=== PATIENT | female | born 1950 | race Caucasian/White ===

== ENCOUNTER → 2024-05-03 09:05 | Outpatient (REF) | payer BC, SELFPAY ==
[2024-05-03 10:23] LABS: % Basophils 0.5 % (0-2); % Eosinophils 3.1 % (0-6); % Immature Granulocytes 0.2 % (0-0.5); % Lymphocytes 21.2 % (20.5-51.1); % Monocytes 6.6 % (1.7-9.3); % Neutrophils 68.4 % (42.2-75.2); Absolute Eosinophils 0.2 10^3/uL (0-0.7); Absolute Lymphocytes 1.3 10^3/uL (1.2-3.4); Absolute Monocytes 0.4 10^3/uL (0.1-0.6); Absolute Neutrophils 4.1 10^3/uL (1.4-6.5); Hematocrit 43.7 % (37.0-47.0); Hemoglobin 14.1 g/dL (12.0-16.0); Mean Corp Hgb Conc. 32.3 g/dL (33.0-37.0); Mean Corpuscular Hgb 26.9 pg (27.0-31.0); Mean Corpuscular Volume 83.4 fL (81.0-99.0); Mean Platelet Volume 11.6 fL (7.4-10.4); Nucleated Red Blood Cells % 0 %; Platelet Count 170 10^3/uL (130-400); Red Blood Cell Count 5.24 10^6/uL (4.20-5.40); Red Cell Dist. Width 14.4 % (11.5-14.5)
[2024-05-03 10:54] LABS: ALT (SGPT) 13 U/L (0-35); AST (SGOT) 23 U/L (14-36); Albumin 4.2 g/dl (3.5-5.0); Alkaline Phosphatase 114 U/L (38-126); Blood Urea Nitrogen 15 mg/dl (7-17); Calcium 9.3 mg/dl (8.4-10.2); Carbon Dioxide 27 mmol/L (22-30); Chloride 103 mmol/L (98-107); Glucose 100 mg/dl (70-99); HDL Cholesterol 53 mg/dl; LDL Cholesterol, Calculated 109 mg/dl; Potassium 4.6 mmol/L (3.5-5.1); Sodium 141 mmol/L (135-145); Total Bilirubin 0.6 mg/dl (0.2-1.3); Total Cholesterol 213 mg/dl (50-199); Total Protein 6.6 g/dl (6.3-8.2); Triglyceride 255 mg/dl (10-149); Very Low Density Lipoprotein 51 mg/dl (0-30); eGFR > 60.00
[2024-05-03 11:19] LABS: TSH Reflex To Free T4 2.94 uIU/ml (0.47-4.68)
== END ==
LOC: REG 09:05
PROVIDERS: ATTENDING PHYSICIAN Nurse Practitioner Adult Health
DX: I10 Essential (primary) hypertension (principal)
CPT/HCPCS: 36415; 80053; 80061; 84443; 85025

== ENCOUNTER → 2024-06-17 08:04 | Outpatient (REF) | payer BC, SELFPAY | LOC: HWWDC 08:04 | PROVIDERS: ATTENDING PHYSICIAN Nurse Practitioner Adult Health | DX: Z12.31 Encounter for screening mammogram for malignant neoplasm of breast (principal); Z13.820 Encounter for screening for osteoporosis | CPT/HCPCS: 77063; 77067; 77080 ==

== ENCOUNTER 2025-02-23 11:25 | Emergency (ER) | payer BC, SELFPAY ==
[2025-02-23 11:30] VITALS: BP 172/93
[2025-02-23 12:41] VITALS: BMI 28.6
[2025-02-23 12:46] VITALS: BP 129/84
--- NOTE | 2025-02-23 12:50 | EDRN ---
Pt states she is light sensitive, seeing waves and spots intermittently. PCP sent her to ED to be seen for further evaluation. Pt has had symptoms for a month.
--- NOTE | 2025-02-23 13:00 | EDRN ---
Nichelle MOROCHO in [facility] w/ pt.
--- NOTE | 2025-02-23 13:13 | ED.GENMED ---
History of Present Illness
General
Chief Complaint: Visual Problem
Source: patient
Time Seen by Provider: 02/23/25 12:53
History of Present Illness
History of Present Illness:
74-year-old female with past medical history of GERD and hypercholesterolemia presenting to the emergency department for evaluation of a visual disturbance that has been ongoing for about 1 month, saw primary care provider initially for this and was
started on a p.o. steroid taper with no improvement, had a routine optometry visit about 2 weeks ago, noted the symptoms to the dinkey dispatcher but no reported abnormalities were found. Patient states due to the persistent nature of the symptoms was
recommended by primary care to come to the ER for further evaluation. Patient does wear glasses but no contact lenses. She notes no pain associated with this. She describes the visual disturbance more so when looking at a bright object stating
that there does appear to be patches of waves or distortion of the image but notes it is in both eyes as opposed to just 1. Denies any headaches, focal weakness or numbness, diplopia fevers or infectious symptoms, recent illnesses, history of
similar. No other concerns presently.
Past History
Past History
ED Past Medical History: GERD and Hypercholesterolemia
ED Past Surgical History: Gynecological
Social History
Tobacco: Non-smoker
Alcohol: None
Drug: None
Personal:
Living: alone
Review of Systems
Review of Systems
All Other Systems: ROS reviewed and negative except as documented in HPI and ROS
Phy Exam
Physical Exam
Physical Exam:
GENERAL: Alert , in no apparent distress
EYE: conjunctiva clear, pupils 4 mm bilateral, PERRL, EOMI, no periorbital edema or erythema, no proptosis.
VISUAL ACUITY: 20/20 left right and both eyes
Tonometry measurement was 23 on the right eye, 19 on the left eye
Head: Normocephalic atraumatic
NECK: Supple,
ENT: mmm.
CARDIAC, regular rate and rhythm, no murmur
LUNGS: no acute respiratory distress
NEUROLOGICAL: Alert and oriented
SKIN: Warm and dry, skin intact.
MUSCULOSKELETAL: well perfused.
PSYCH: Normal and appropriate interaction.
Scores
Heart Failure Risk
Heart Failure Risk Score: Not Applicable
Heart Score for Chest Pain Patients
STEMI patient?: Not applicable
Withdrawal Assessment of Alcohol
Withdrawal Assessment Completed?: Not applicable
Course
Orders/Labs/Results
Orders:
Orders
02/23/25 12:54
CT Head W/o Iv Contrast Urgent
Comment:
Reason For Exam: visual disturbance, HTN
Visual Acuity- Treatment ONCE
02/23/25 13:45
Fluorescein Sodium [Ful-Mary Jo] 1 mg .ROUTE .STK-MED ONE
Tetracaine HCl [Tetracaine 0.5% Ophthalmic Solution] 1 drop .ROUTE .STK-MED ONE
02/23/25 12:16
02/23/25 12:16
Vital Signs
Initial and Last Documented VS:
Initial Vital Signs
Temp Pulse Resp BP Pulse Ox
98.3 F 84 16 172/93 98
02/23/25 11:30 02/23/25 11:30 02/23/25 11:30 02/23/25 11:30 02/23/25 11:30
Last Documented Vital Signs
Temp Pulse Resp BP Pulse Ox
98.3 F 60 16 148/98 97
02/23/25 11:30 02/23/25 14:24 02/23/25 14:24 02/23/25 14:24 02/23/25 14:24
MDM/Problems Addressed
Differential Diagnosis Includes:
Retinal detachment
Retinopathy
Given lack of pain my concern for glaucoma/iritis/infectious etiology are very minimal
Mass/malignancy
Intracranial bleeding
GCA
MDM/Problems Addressed:
74-year-old female presenting to the ER for painless visual disturbance for the last month. Primary care had put the patient on oral steroids a couple weeks ago but no improvement, saw her dinkey dispatcher without any abnormal findings. Symptoms
continue. Hypertensive on arrival but normotensive at time of my exam. Patient does have slightly elevated tonometry measurement in the right eye but given lack of pain and normal visual acuity my suspicion for glaucoma is quite low. Will obtain
CT of the head. Will discuss with ophthalmology as suspect patient will need follow-up as an outpatient.
*Radiology
Radiology exam reviewed: radiology read reviewed
*Pulse Oximetry
SaO2: 98
Oxygen Mode of Delivery: Room air
Patient hypoxic: no
*Critical Care Note
Total Time (30-74mins, 75-104mins- exclusive of procedures): Not Applicable
Patient Management
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
Escalation/DeEscalation of care consider admission/obs:
Patient CT of the head is negative. I have no clinical concern for any emergent ophthalmologic or processes especially given the patient's symptoms been ongoing for 1 month. I did notify ophthalmology via [place] text to help try and expedite a
follow-up visit. Patient is aware of return precautions to the ER. She will also follow-up with primary care provider.
ED Attending Note
-
Portions of this chart may have been created with voice recognition software.� Occasional wrong word or��sound alike� substitutions may have occurred due to the inherent limitations of voice recognition software.
Discharge Plan
Departure
Patient Disposition: Home (Routine Discharge)
Date of Disposition: 02/23/25
Time of Disposition: 14:16
Patient with high blood pressure during this ER visit?: Yes
Discharge Problem:
Visual disturbance
Referrals:
Francis Feldman MD [Active, Ophthalmology]
Referral Note: Please call for appointment
Kortney Caldwell CRNP [Family Provider, Internal Medicine]
Interventions
Interventions:
*Risk Screen - Suicide Last Done: 02/23/25 11:30
*General Assessment Last Done: 02/23/25 12:41
*Neglect/Abuse Screening Last Done: 02/23/25 11:30
*ED- Fall Risk Assessment Last Done: 02/23/25 12:41
*ED COVID-19 Vaccine History Last Done: 02/23/25 12:41
*Nursing Disposition Last Done: 02/23/25 14:40
ED- Neurological Assessment Last Done: 02/23/25 12:41
ED-EENT Assessment Last Done: 02/23/25 12:56
ED Swallowing Screen Last Done: 02/23/25 12:56
Discharge Date and Time
Discharge Date/Time: 02/23/25 14:40
Print Language: PALESTINIAN
[2025-02-23 14:24] VITALS: BP 148/98
== END 2025-02-23 14:40 | disposition home or self-care (01) ==
LOC: EMR 11:25
PROVIDERS: EMERGENCY PHYSICIAN Emergency Medicine; FAMILY PHYSICIAN Nurse Practitioner Adult Health
DX: H53.9 Unspecified visual disturbance (principal); E78.00 Pure hypercholesterolemia, unspecified; I10 Essential (primary) hypertension
CPT/HCPCS: 99284; 70450

== ENCOUNTER → 2025-02-23 18:08 | Outpatient (REF) | payer BC, SELFPAY | LOC: CLAB 18:08 | PROVIDERS: Pathology Anatomic Pathology & Clinical Pathology; ATTENDING PHYSICIAN Dermatology | DX: D48.5 Neoplasm of uncertain behavior of skin (principal) | CPT/HCPCS: 88305 ==

== ENCOUNTER → 2025-03-20 11:36 | Outpatient (REF) | payer BC, SELFPAY ==
[2025-03-20 13:59] LABS: Blood Urea Nitrogen 13 mg/dl (7-17)
== END ==
LOC: REG 11:36
PROVIDERS: ATTENDING PHYSICIAN Ophthalmology; FAMILY PHYSICIAN Nurse Practitioner Adult Health
DX: H53.19 Other subjective visual disturbances (principal)
CPT/HCPCS: 36415; 82565; 84520

== ENCOUNTER → 2025-04-04 08:35 | Outpatient (REF) | payer BC, SELFPAY | LOC: MRI 08:35 | PROVIDERS: ATTENDING PHYSICIAN Ophthalmology; FAMILY PHYSICIAN Nurse Practitioner Adult Health | DX: H53.19 Other subjective visual disturbances (principal) | CPT/HCPCS: 70546; 70553; A9585 ==

== ENCOUNTER → 2025-04-17 08:12 | Outpatient (REF) | payer BC, SELFPAY | LOC: RAD 08:12 | PROVIDERS: ATTENDING PHYSICIAN Obstetrics & Gynecology; FAMILY PHYSICIAN Nurse Practitioner Adult Health | DX: C54.1 Malignant neoplasm of endometrium (principal) | CPT/HCPCS: 71260; 74177; Q9967 ==

== ENCOUNTER → 2025-05-07 08:37 | Outpatient (REF) | payer BC, SELFPAY ==
[2025-05-07 10:13] LABS: Hematocrit 45.1 % (37.0-47.0); Hemoglobin 14.5 g/dL (12.0-16.0); Mean Corp Hgb Conc. 32.2 g/dL (33.0-37.0); Mean Corpuscular Volume 84.8 fL (81.0-99.0); Nucleated Red Blood Cells % 0 %; Platelet Count 177 10^3/uL (130-400); Red Cell Dist. Width 14.7 % (11.5-14.5)
[2025-05-07 11:19] LABS: ALT (SGPT) 15 U/L (0-35); AST (SGOT) 18 U/L (14-36); Albumin 4.3 g/dl (3.5-5.0); Alkaline Phosphatase 104 U/L (38-126); Blood Urea Nitrogen 16 mg/dl (7-17); Calcium 9.2 mg/dl (8.4-10.2); Carbon Dioxide 28 mmol/L (22-30); Chloride 106 mmol/L (98-107); Glucose 97 mg/dl (70-99); HDL Cholesterol 51 mg/dl; LDL Cholesterol, Calculated 133 mg/dl; Potassium 4.7 mmol/L (3.5-5.1); Sodium 139 mmol/L (135-145); Total Protein 7.0 g/dl (6.3-8.2); Very Low Density Lipoprotein 51 mg/dl (0-30); eGFR > 60.00
[2025-05-07 14:01] LABS: Glycohemoglobin (HgbA1c) 5.4 % (4.0-5.6)
== END ==
LOC: REG 08:37
PROVIDERS: ATTENDING PHYSICIAN Nurse Practitioner Adult Health
DX: E78.2 Mixed hyperlipidemia (principal); R73.9 Hyperglycemia, unspecified
CPT/HCPCS: 36415; 80053; 80061; 83036; 84443; 85025

== ENCOUNTER → 2025-08-10 13:17 | Outpatient (REF) | payer BC, SELFPAY | LOC: HWWDC 13:17 | PROVIDERS: ATTENDING PHYSICIAN Nurse Practitioner Adult Health | DX: Z12.31 Encounter for screening mammogram for malignant neoplasm of breast (principal) | CPT/HCPCS: 77063; 77067 ==